=== PATIENT | female | born 1945 | race Native Hawaiian/Other Pacific Islander ===

== ENCOUNTER 2021-09-15 15:29 | Emergency (ER) | payer OTHER ==
[~2021-09-15] VITALS: Ht 165.1 cm; Wt 72.6 kg
[2021-09-15 15:37] VITALS: TEMP 97.8
[2021-09-15 16:28] VITALS: BP 142/88
== END 2021-09-15 16:31 | disposition home or self-care (01) ==
LOC: ED 15:29
DX: J06.9 Acute upper respiratory infection, unspecified (principal); E11.65 Type 2 diabetes mellitus with hyperglycemia; Z20.822 Contact with and (suspected) exposure to COVID-19
CPT/HCPCS: 87502; 87635; 87651; 99283; J1815; U0003

== ENCOUNTER 2021-09-29 20:43 | Emergency (ER) | payer OTHER ==
[~2021-09-29] VITALS: Ht 165.1 cm; Wt 72.6 kg
[2021-09-29 20:54] VITALS: BP 137/70; TEMP 98.3
[2021-09-29 21:54] LABS: PLATELET COUNT 227 K/uL (152-353)
[2021-09-29 22:07] LABS: POTASSIUM 3.2 mmol/L (3.6-5.2)
== END 2021-09-29 23:27 | disposition home or self-care (01) ==
LOC: ED 20:43
PROVIDERS: Family Medicine
DX: N39.0 Urinary tract infection, site not specified (principal); E11.65 Type 2 diabetes mellitus with hyperglycemia
CPT/HCPCS: 36415; 80053; 81002; 81015; 83605; 85027; 86140; 87040; 87077; 87086; 87088; 87186; 99282

== ENCOUNTER 2022-06-03 21:03 | Emergency (ER) | payer OTHER ==
[~2022-06-03] VITALS: Ht 165.1 cm; Wt 72.6 kg
[~2022-06-03 21:03] MED LIST: LISI10TA11 PO; METF500T PO; METFORMIN HYDR750 MG PO; TRULICITY0.75 MG/0. SC
[2022-06-03 21:48] LABS: PLATELET COUNT 282 K/uL (152-353)
[2022-06-03 22:02] LABS: POTASSIUM 3.2 mmol/L (3.6-5.2)
[2022-06-03 23:18] VITALS: BP 138/72; TEMP 98.3
== END 2022-06-03 23:18 | disposition home or self-care (01) ==
LOC: ED 21:03
PROVIDERS: Emergency Medicine
DX: R07.89 Other chest pain (principal); F41.8 Other specified anxiety disorders; E87.6 Hypokalemia; Z20.822 Contact with and (suspected) exposure to COVID-19; R06.02 Shortness of breath; W22.03XA Walked into furniture, initial encounter; Y92.092 Bedroom in other non-institutional residence as the place of occurrence of the external cause
CPT/HCPCS: 36415; 80053; 81002; 82550; 83880; 84484; 85027; 85379; 87502; 87635; 93005; 96374; 99284; J1885; U0003